=== PATIENT | male | born 1960 | race Caucasian/White ===

== ENCOUNTER 2019-02-19 19:43 | Emergency (ER) | payer BC ==
[2019-02-19] MEDS ORDERED: Lidocaine 1% with EPINEPHrine 1:100,000 50 ML MDV SUBCUT ONE (20:14)
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
[2019-02-19] MEDS ORDERED: Bacitracin Oint 1 GM U/D Packet TOP ONE (20:40)
[2019-02-19] MEDS ORDERED: Diphtheria,Pertussis(Acell),Tetanus Vaccine 0.5 ML SDV IM ONE (20:40)
--- NOTE | 2019-02-19 21:07 | CRLCT ---
INDICATION : Head injury TECHNIQUE : CT Scan of the brain without contrast. FINDINGS: Calvarium: Normal. Orbits: There is a small linear dense foreign body or object in the medial preseptal tissues of the left orbit. Series 3 image 3. It does not clearly of metal artifact. In the medial right orbit there is curvilinear calcification which is probably associated with the trochlear vijaya which is normal. Sinuses: Clear. Scalp: There is hematoma in the right temporal scalp. Brain: No midline shift or intracranial mass. No intra-axial hemorrhage. No hemorrhage at the intra-axial spaces. IMPRESSION: 1. Right temporal scalp hematoma. 2. Normal CT brain 3. Linear foreign body preseptal left orbit. Please note that all CT scans at this facility use dose modulation, iterative reconstruction, and/or weight-based dosing when appropriate to reduce radiation dose to as low as reasonably achievable. Dictated by Seven Galvin MD @ Feb 19 2019 9:05PM Signed by Dr. Seven Galvin @ Feb 19 2019 9:05PM
== END 2019-02-19 22:15 | disposition home or self-care (01) ==
LOC: JP.ED 19:43 → EDBD 19:43 → JP.ED 22:15
DX: S01.311A Laceration without foreign body of right ear, initial encounter (principal); Z23 Encounter for immunization; W22.8XXA Striking against or struck by other objects, initial encounter
CPT/HCPCS: 12013; 70450; 90471; 90715; 99283-25